=== PATIENT | female | born 2000 | race Caucasian/White ===

== ENCOUNTER 2021-09-28 18:43 | Emergency (ER) | payer OTHER ==
[2021-09-28 19:39] LABS: HEMOGLOBIN 12.8 gm/dl (12.3-15.3); RED BLOOD COUNT 5.07 M/UL (4.00-5.10); WHITE BLOOD COUNT 9.1 K/UL (4.5-11.0)
[2021-09-28 20:00] LABS: BUN/CREATININE RATIO 17 (0-10)
== END 2021-09-28 22:40 | disposition home or self-care (01) ==
LOC: ER1 18:43
PROVIDERS: Emergency Medicine
DX: O20.0 Threatened abortion (principal); Z3A.28 28 weeks gestation of pregnancy
CPT/HCPCS: 76830; 80053; 81001; 84702; 85025; 86850; 86900; 86901; 87086; 96372; 99284; J2790; J2791